=== PATIENT | male | born 1950 | race Caucasian/White ===

== ENCOUNTER → 2017-02-11 | Day surgery (SDC) | payer OTHER, MEDICARE ==
[~2017-02-11] MED LIST: ALBUTEROL17 GM INH; ANORO ELLIPTA1 EACH INH; FOSAMAX70 MG PO; PRILOSEC PO; RANITIDINE HCL150 M1 PO; SEROQUEL50 M1 PO; SYMBICORT 160/4.6 GM INH; TUDORZA PRESS400 MCG IH
--- NOTE | ~2017-02-11 | OR ---
Unit #: [id number] #: [id number] Patient: DEIDRE FONTAINE [id number] [facility]. [place], [place] [address] [id number] MR#: [id number] NAME: DEIDRE FONTAINE ROOM: Date of Procedure: 02/11/2017 Admission Date: 02/11/2017 Surgeon: Lyle Couch M.D. : 1950 Attending Physician: Lyle Couch M.D. Referring Physician: Lyle Couch M.D. Primary Care Physician: Jose Angel Haji M.D. OPERATIVE REPORT PRIMARY CARE PHYSICIAN Jose Angel Haji M.D. PREOPERATIVE DIAGNOSES Dysphagia. The patient has abnormal CT scan that shows thickening of the distal esophagus. In addition, he is come for screening colonoscopy. PROCEDURES PERFORMED Upper gastrointestinal endoscopy and dilation as well as colonoscopy with polypectomy. POSTOPERATIVE DIAGNOSES For upper endoscopy: 1. The patient has small hiatus hernia as well as distal esophageal mucosal ring. The latter was dilated using a 60-[place] Salmon dilator. For colonoscopy: 1. There was a 1.8 cm sessile polyp in the proximal descending colon. The latter was removed using snare cautery polypectomy. 2. There was a smaller 5 mm polyp in the mid ascending colon, removed using snare polypectomy. 3. Mild sigmoid and descending colon diverticulosis. 4. Rest of the examination up to cecum and terminal ileum was normal. The quality of the prep was excellent. RECOMMENDATIONS The patient will be followed up in the office in 3 months' time. He will continue on omeprazole 40 mg p.o. daily. SEDATION USED MAC. DESCRIPTION OF PROCEDURE Following detailed explanation of the potential risks and complications of an upper endoscopy and a colonoscopy, namely perforation, bleeding, and complications related to sedation, the patient was brought to GI lab and laid in the left lateral decubitus position. Lubricated tip of the Olympus video upper endoscope was passed through the bite block into the proximal esophagus under direct vision. The entire esophageal mucosa was examined and the patient was noted to have distal esophageal mucosal ring. In addition, a small hiatus hernia was noted. The scope was then advanced in the gastric cavity. The latter was insufflated. Mucosa of the fundus, body, and antrum examined and appeared unremarkable. Pylorus was Unit #: [id number] #: [id number] Patient: DEIDRE FONTAINE intubated with visualization of the normal duodenal bulb and second and third part of the duodenum. Upon withdrawal and retroflexion, incisura, cardia, and greater curve examined, no additional findings noted. The scope was withdrawn in the distal esophagus. Entire esophageal mucosa was examined all the way up to pharynx. No additional findings noted. A 60-[place] Salmon dilator was introduced through the oral cavity and advanced into the esophagus. Relook endoscopy showed fracturing of the distal esophageal ring. Minimal bleeding was noted. The area was thoroughly washed with water. Good hemostasis was achieved. The scope was then withdrawn. The examination table was then turned by 180 degrees and the patient positioned for a colonoscopy. A digital rectal examination was performed, which was normal. Lubricated tip of the Olympus video colonoscope was inserted through the anus and advanced under direct vision. The scope was advanced and passed up to sigmoid into descending colon. Multiple medium-sized diverticula were noted in this area. The scope tip was then navigated all the way up to cecum with visualization of the ileocecal valve and the appendiceal orifice. Preparation was excellent with good visualization and photodocumentation was obtained. Last few inches of the terminal ileum also visualized after intubation of the ileocecal valve and appeared normal. Successive segments of the colonic mucosa were examined upon withdrawal. A small sessile polyp was noted in the mid ascending colon. This was removed using snare polypectomy. A second larger 1.8 cm sessile polyp was noted in the proximal descending colon. The latter was removed using snare cautery polypectomy. Excellent hemostasis was achieved and photodocumentation was obtained. The retrieved polyp was sent for histology. No additional polyps noted. The patient did not have any other abnormalities other than the left-sided diverticula. No hemorrhoids were seen at the anal verge. The scope was then withdrawn. The patient returned to the recovery area. He tolerated the procedure without any postprocedure complications. Dictated byLori Adams TD: 02/12/2017 01:17 JOB #: [id number] OPERATIVE REPORT Page 1 of 1 X Lyle Couch MD PROCEDURE OPERATIVE NOTE
== END | disposition home or self-care (01) ==
LOC: COPS 11:19
DX: Z12.11 Encounter for screening for malignant neoplasm of colon (principal); D12.4 Benign neoplasm of descending colon; D12.2 Benign neoplasm of ascending colon; K57.30 Diverticulosis of large intestine without perforation or abscess without bleeding; K22.2 Esophageal obstruction; K44.9 Diaphragmatic hernia without obstruction or gangrene; J44.9 Chronic obstructive pulmonary disease, unspecified; M19.90 Unspecified osteoarthritis, unspecified site; Z87.891 Personal history of nicotine dependence; Z88.8 Allergy status to other drugs, medicaments and biological substances; Z79.899 Other long term (current) drug therapy; Z98.890 Other specified postprocedural states
CPT/HCPCS: 88305; J2250